=== PATIENT | female | born 1965 | race Caucasian/White ===

== ENCOUNTER 2016-05-19 22:59 | Emergency (ER) | payer SELFPAY ==
[~2016-05-19] VITALS: Ht 162.6 cm; Wt 113.4 kg
[2016-05-19 23:00] VITALS: BP 157/99; PULSE 92; RESP 16; TEMP 97.9; O2SAT 97
--- NOTE | 2016-05-19 23:00 | NUR ---
Patient to ER bed 4 to gown for evaluation. Side rails up. Report given to Vernon WIGGINS.
--- NOTE | 2016-05-19 23:10 | NUR ---
PT BIB ALS C/O S/P SEIZURE AND HAD POST ICTAL FOR 2 MINUTES STATED BY THE INTERIOR WIRER. PT AT ER, CAN'T RECALL WHAT HAPPEN TO HER AND DENIES ANY PAIN, N/V. PT V/S ARE WITHIN NORMAL LIMITS AND NOT IN CP DISTRESS.
--- NOTE | 2016-05-19 23:15 | NUR ---
ER Dr.DE BUCKNER at bedside examining patient.
[2016-05-19 23:59] LABS: BASOPHILS # (AUTO) 0.1 K/uL (0.0-0.2); BASOPHILS % (AUTO) 1.1 % (0.0-2.0); EOSINOPHILS # (AUTO) 0.2 K/uL (0.0-0.4); EOSINOPHILS % (AUTO) 2.8 % (0.0-4.0); HEMOGLOBIN 9.1 g/dL (12.0-16.0); LYMPHOCYTES # (AUTO) 2.1 K/uL (1.0-5.5); MEAN CORPUSCULAR HEMOGLOBIN 23 pg (27-31); MEAN CORPUSCULAR HGB CONC 30 % (32-36); MEAN CORPUSCULAR VOLUME 75 fL (79.0-98.0); MONOCYTES # (AUTO) 0.3 K/uL (0.0-1.0); MONOCYTES % (AUTO) 4.1 % (1.7-9.3); NEUTROPHILS # (AUTO) 4.5 K/uL (1.8-7.7); PLATELET COUNT (AUTO) 196 K/uL (130-430); RED BLOOD CELL COUNT(AUTO) 4.03 MIL/uL (4.2-6.2); RED CELL DISTRIBUTION WIDTH 15.3 % (9.0-15.0); WHITE BLOOD COUNT (AUTO) 7.2 K/uL (4.8-10.8)
[2016-05-20 00:13] LABS: CALCIUM 8.2 mg/dL (8.4-11.0); CREATININE 0.81 mg/dL (0.55-1.30); POTASSIUM 3.4 mmol/L (3.5-5.1)
[2016-05-20 00:20] LABS: ALBUMIN 3.3 g/dL (3.4-4.8); TOTAL BILIRUBIN 0.9 mg/dL (0.0-1.0); TOTAL PROTEIN, SERUM 6.9 g/dL (6.4-8.3)
[2016-05-20 00:50] VITALS: BP 139/72; PULSE 86; RESP 16; TEMP 97.9; O2SAT 97
--- NOTE | 2016-05-20 00:50 | NUR ---
Patient given written and verbal discharge instructions and verbalizes understanding. ER MD discussed with patient the results and treatment provided. Patient in stable condition. ID arm band removed. IV catheter removed intact and dressing applied, no active bleeding. no Rx of given. Patient educated on pain management and to follow up with PMD. Pain Scale 0/10. Opportunity for questions provided and answered.
== END 2016-05-20 00:50 | disposition home or self-care (01) ==
LOC: SED 22:59
DX: G40.89 Other seizures (principal)
CPT/HCPCS: 36415; 80053; 85025; 99284